=== PATIENT | female | born 2000 | race Caucasian/White ===

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

== ENCOUNTER 2021-02-03 08:17 | Outpatient (CLI) | payer BC, SELFPAY ==
--- NOTE | ~2021-02-03 | XR_ITS ---
EXAMINATION: XR UGIAC w barium swallow DATE: 02/03/2021 08:53 INDICATION: Gastroesophageal reflux disease with esophagitis. TECHNIQUE: The patient drank thick barium, gas-producing crystals, and thin barium. Fluoroscopy of th e esophagus, stomach, and proximal small bowel was performed. Fluoroscopy exposure time was 1.0 minut es. The total number of images was 267. Total dose-area product was 3.5 Gy-cm^2. COMPARISON: None. FINDINGS: There is no mass or stricture of the esophagus. Esophageal motility is normal. There is no hiatal hernia. There was no gastroesophageal reflux with provocative maneuvers. The stomach and proxi mal small bowel show normal folding patterns. IMPRESSION: 1. Normal upper gastrointestinal series. Reviewed, dictated and finalized at location A.
== END 2021-02-03 08:18 | disposition home or self-care (01) ==
PROVIDERS: PCP Family Medicine; Visit Provider Surgery
DX: K21.00 Gastro-esophageal reflux disease with esophagitis, without bleeding (principal)
CPT/HCPCS: 74246

== ENCOUNTER 2021-03-22 09:15 | Outpatient (CLI) | payer BC, SELFPAY ==
--- NOTE | ~2021-03-22 | NM_ITS ---
EXAMINATION: NM hepatobiliary w pharm DATE: 03/22/2021 12:04 INDICATION: Epigastric abdominal pain. COMPARISON: None. TECHNIQUE: 4.9 mCi Tc-99m mebrofenin (Choletec) was administered intravenously. Scintigraphic images of the abdomen were obtained for one hour. Then, 2.2 mcg sincalide (Kinevac) IV was administered, an d imaging was continued for 30 minutes. FINDINGS: There is normal clearance of radiotracer from the blood pool. There is homogeneous tracer u ptake by the liver. Activity progresses to the bowel and gallbladder. Gallbladder ejection fraction (GBEF) was 48%. Note that most patients with gallbladder dysfunction have GBEF < 35%, which overlaps with the broad normal range of 10-90%. IMPRESSION: 1. Normal hepatobiliary scintigraphy. Reviewed, dictated and finalized at location A.
== END 2021-03-22 09:16 | disposition home or self-care (01) ==
PROVIDERS: PCP Family Medicine; Visit Provider Surgery
DX: R10.13 Epigastric pain (principal); R11.0 Nausea; R11.10 Vomiting, unspecified
CPT/HCPCS: 78227; A9537; J2805

== ENCOUNTER 2021-03-22 16:38 | Emergency (ER) | payer BC, SELFPAY ==
[2021-03-22] VITALS (7 sets, daily range): BP systolic 112–137; BP diastolic 67–81; PULSE 87–92; RESP 14–20; TEMP 36.7–37.7; O2SAT 99–100
[2021-03-22 17:31] LABS: Basophils Percent Auto 0.3 % (0.2-1.2); Eosinophils Absolute Auto 0.1 K/mm3 (0-0.3); Eosinophils Percent Auto 0.9 % (0-4.4); Hematocrit 41.8 % (37.0-47.0); Hemoglobin 13.6 g/dL (12.0-15.0); Immature Granulocyte Absolute 0.03 K/mm3 (0.00-0.031); Immature Granulocyte Percent A 0.3 % (0-0.5); Lymphocytes Absolute Auto 2.48 K/mm3 (0.9-3.2); Lymphocytes Percent Auto 25.8 % (18.3-44.2); Mean Corpuscular HGB Conc 32.5 g/dl (32-36); Mean Corpuscular Hemoglobin 27.1 pg (26-34); Mean Corpuscular Volume 83.4 fl (80-100); Mean Platelet Volume 9.9 fl (7.4-10.4); Monocytes Absolute Auto 1.1 K/mm3 (0.1-0.6); Monocytes Percent Auto 11.3 % (2.6-8.5); Neutrophils Absolute Auto 5.9 K/mm3 (1.3-6.7); Neutrophils Percent Auto 61.4 % (45.5-73.1); Platelet Count Result 377 k/mm3 (150-375); Red Blood Count 5.01 M/mm3 (4.2-5.4); White Blood Count 9.6 K/mm3 (4.5-10.0)
[2021-03-22 17:44] LABS: Alanine Aminotransferase 27 U/L (4-35); Albumin Level 4.5 g/dL (3.7-5.6); Alkaline Phosphatase 92 U/L (45-116); Anion Gap 9 mmol/L (8-16); Aspartate Amino Transferase 32 U/L (14-36); Bilirubin,Total 0.4 mg/dL (0.2-1.3); Blood Urea Nitrogen 9 mg/dL (8-21); Calcium 9.5 mg/dL (8.9-10.7); Carbon Dioxide 26 mmol/L (22-30); Chloride 104 mmol/L (98-107); Estimated CRCL calculation 139 ml/min; Estimated Glomerular Filt Rate > 60; Glucose 93 mg/dL (65-105); Lipase 84 U/L (23-300); Potassium 3.8 mmol/L (3.4-5.0); Sodium 139 mmol/L (134-143)
--- NOTE | 2021-03-22 22:29 | ED.ABDPAIN ---
HPI - Abdominal Pain General Chief Complaint: Abdominal Pain Stated Complaint: ABD PAIN, N/V/D Time Seen by Provider: 03/22/21 22:29 Related Data Home Medications Medication Instructions Recorded Confirmed aripiprazole 5 mg tablet 5 mg PO HS 05/09/20 03/20/21 escitalopram oxalate 10 mg tablet 10 mg PO HS 05/09/20 03/20/21 norgestimate-ethinyl estradiol 1 tablet PO DAILY 05/09/20 03/20/21 0.18 mg/0.215mg/0.25mg-35 mcg(28)tablet cholecalciferol (vitamin D3) 25 25 mcg PO DAILY 07/18/20 03/20/21 mcg (1,000 unit) capsule Allergies Allergy/AdvReac Type Severity Reaction Status Date / Time No Known Allergies Allergy Verified 03/20/21 08:21 [facility] Past Medical History Medical History Anxiety BMI 37.0-37.9, adult Depression Headache Hiatal hernia Migraine Nausea Reflux esophagitis Surgical History Surgical History [place] teeth extracted Family History Family History Grandparent Hypertension Depression Grandparent Hypertension Hyperlipidemia Carcinoma of colon Social History Social History Alcohol intake: never Substance use: never Substance use type: does not use Additional occupation/education comments: [employer] Gender identity (if verbalized by the patient): Female Spiritual care concerns: No Course Vital Signs Vital signs: Vital Signs Temperature 37.4 C 03/22/21 17:07 Pulse Rate 88 03/22/21 17:07 Respiratory Rate 14 03/22/21 17:07 Blood Pressure 132/77 03/22/21 17:07 Pulse Oximetry 99 03/22/21 17:07 Temperature 37.7 C H 03/22/21 21:06 Pulse Rate 87 03/22/21 21:06 Respiratory Rate 18 03/22/21 21:06 Blood Pressure 112/67 03/22/21 21:06 Pulse Oximetry 100 03/22/21 21:06 MDM - Abdominal Pain Lab Data Result diagrams: 03/22/21 17:22 03/22/21 17:22 Labs: Lab Results 03/22/21 03/22/21 Range/Units 17:22 17:22 WBC 9.6 (4.5-10.0) K/mm3 RBC 5.01 (4.2-5.4) M/mm3 Hgb 13.6 (12.0-15.0) g/dL Hct 41.8 (37.0-47.0) % MCV 83.4 (80-100) fl MCH 27.1 (26-34) pg MCHC 32.5 (32-36) g/dl RDW 14.0 (11.5-14.5) % Plt Count 377 H (150-375) k/mm3 MPV 9.9 (7.4-10.4) fl Immature Gran % (Auto) 0.3 (0-0.5) % Neut % (Auto) 61.4 (45.5-73.1) % Lymph % (Auto) 25.8 (18.3-44.2) % [place]cl[place] % (Auto) 11.3 H (2.6-8.5) % Eos % (Auto) 0.9 (0-4.4) % Baso % (Auto) 0.3 (0.2-1.2) % Lymph # (Auto) 2.48 (0.9-3.2) K/mm3 [place] # (Auto) 1.1 H (0.1-0.6) K/mm3 Eos # (Auto) 0.1 (0-0.3) K/mm3 Baso # (Auto) 0.0 (0.0-0.1) K/mm3 Abs Immat Gran (auto) 0.03 (0.00-0.031) K/mm3 Absolute Neuts (auto) 5.9 (1.3-6.7) K/mm3 Absolute Nucleated RBC 0.0 (0.0-0.012) K/mm3 Nucleated RBC % 0.0 (0.0-0.2) % Sodium 139 (134-143) mmol/L Potassium 3.8 (3.4-5.0) mmol/L Chloride 104 (98-107) mmol/L Carbon Dioxide 26 (22-30) mmol/L Anion Gap 9 (8-16) mmol/L BUN 9 (8-21) mg/dL Creatinine 0.70 (0.7-1.0) mg/dL Estim Creat Clear Calc 139 ml/min Estimated GFR > 60 (59 - ) Glucose 93 (65-105) mg/dL Calcium 9.5 (8.9-10.7) mg/dL Total Bilirubin 0.4 (0.2-1.3) mg/dL AST 32 (14-36) U/L ALT 27 (4-35) U/L Alkaline Phosphatase 92 (45-116) U/L Total Protein 8.0 (6.3-8.6) g/dL Albumin 4.5 (3.7-5.6) g/dL Lipase 84 (23-300) U/L Discharge Plan Discharge Prescriptions: No Action escitalopram oxalate [Lexapro] 10 mg tablet 10 mg PO HS RF: 0 aripiprazole [Abilify] 5 mg tablet 5 mg PO HS RF: 0 norgestimate-ethinyl estradiol [Ortho Tri-Cyclen (28)] 0.18/0.215/0.25 mg-35 mcg (28) tablet 1 tablet PO DAILY RF: 0 cholecalciferol (vitamin D3) 25 mcg (1,000 unit) capsule
--- NOTE | 2021-03-22 23:15 | ED.ABDPAIN ---
HPI - Abdominal Pain General Chief Complaint: Abdominal Pain Stated Complaint: ABD PAIN, N/V/D Time Seen by Provider: 03/22/21 22:29 Source: patient and family Mode of arrival: ambulatory Limitations: no limitations History of Present Illness HPI narrative: 20-year-old with a history of anxiety depression, recurrent upper abdominal pain which is been ongoing for last few months. Mom states that she had been seen by GI had a upper GI which showed esophagitis and a small hiatal hernia for which she was on medication and a repeat EGD which showed no esophageal ulceration, she also states that she had seen Dr. Pack who did a barium studies which showed no evidence of hiatal hernia had a HIDA scan this morning. Patient states that she has been having nausea constantly. She denies any fever or chills. MD elicited complaint: abdominal pain Pertinent past history: none Pain Consistency: constant Location: epigastric Severity: mild Quality: aching Radiation: epigastric Migration to: no migration Exacerbating factors: nothing Relieving factors: nothing Related Data Patient : No Home Medications Medication Instructions Recorded Confirmed aripiprazole 5 mg tablet 5 mg PO HS 05/09/20 03/20/21 escitalopram oxalate 10 mg tablet 10 mg PO HS 05/09/20 03/20/21 norgestimate-ethinyl estradiol 1 tablet PO DAILY 05/09/20 03/20/21 0.18 mg/0.215mg/0.25mg-35 mcg(28)tablet cholecalciferol (vitamin D3) 25 25 mcg PO DAILY 07/18/20 03/20/21 mcg (1,000 unit) capsule Allergies Allergy/AdvReac Type Severity Reaction Status Date / Time No Known Allergies Allergy Verified 03/22/21 22:35 Review of Systems Review of Systems: All systems reviewed & are unremarkable except as noted in HPI and below Constitutional: Constitutional: Reports no additional constitutional complaints Eyes: Eyes: Reports no additional eye complaints ENT: Reports system reviewed and no additional complaints, except as documented Cardiovascular: Cardiovascular: Reports no additional cardiovascular complaints Respiratory: Respiratory: Reports no additional respiratory complaints Gastrointestinal: Gastrointestinal: Reports as per HPI Musculoskeletal: Musculoskeletal: Reports no additional musculoskeletal complaints PMFSH Past Medical History Medical History Anxiety BMI 37.0-37.9, adult Depression Headache Hiatal hernia Migraine Nausea Reflux esophagitis Surgical History Surgical History [place] teeth extracted Family History Family History Grandparent Hypertension Depression Grandparent Hypertension Hyperlipidemia Carcinoma of colon Social History Social History Alcohol intake: never Substance use: never Substance use type: does not use Additional occupation/education comments: [employer] Gender identity (if verbalized by the patient): Female Spiritual care concerns: No Exam Narrative: Exam Narrative: GENERAL: Well-appearing, well-nourished, and in no acute distress. HEAD: Normocephalic, atraumatic. EYES: PERRLA and EOMI. NECK: Supple. CHEST: Clear to auscultation. No respiratory distress. HEART: Regular rate and rhythm. No murmur heard. Normal peripheral pulses. ABDOMEN: Soft, mild epigastric tenderness, nondistended, normal active bowel sounds. EXTREMITIES: Normal range of motion. No edema. SKIN: Warm, dry, no rash. NEURO: No focal deficits. Alert and oriented x3. PSYCH: Normal mood and affect. Course Course Emergency Course: I discussed lab and HIDA scan report with the mother and the patient. Do not see any obvious electrolyte imbalance at this point I advised her to continue Zofran and omeprazole and follow-up with Dr. Pack. Vital Signs Vital signs: Vital Signs Temperature 37.4 C
[2021-03-22 23:41] LABS: Add Urine Microscopic? YES; Appearance Urine Clear (Clear); Bacteria Urine Trace /hpf; Bilirubin Urine Negative (Negative); Blood Urine Negative (Negative); Color Urine Yellow (Yellow); Glucose Urine UA Negative (Negative); Ketones Urine Trace mg/dL (Negative); Leukocyte Esterase Ur Negative LEU/UL (Negative); Mucus Urine Moderate /lpf; Nitrate Urine Negative (Negative); Protein Urine 1+ mg/dL (Negative); RBC Urine 0-2 /hpf (0-2); Squamous Epithelial Cell Urine Moderate /hpf (Few); Urobilinogen Urine Negative mg/dL (<2.0); WBC Urine 0-3 /hpf
[2021-03-22 23:51] LABS: Specific Grav Ur 1.032 (1.001-1.035)
== END 2021-03-22 23:39 | disposition home or self-care (01) ==
PROVIDERS: Emergency Medicine; Emergency Provider Family Medicine; PCP Family Medicine
DX: R10.13 Epigastric pain (principal); K21.00 Gastro-esophageal reflux disease with esophagitis, without bleeding; F41.9 Anxiety disorder, unspecified; F32.9 Major depressive disorder, single episode, unspecified
CPT/HCPCS: 36415; 80053; 81001; 81025; 83690; 85025; 99283

== ENCOUNTER 2021-03-23 10:38 | Outpatient (CLI) | payer BC, SELFPAY ==
--- NOTE | ~2021-03-23 | US_ITS ---
EXAMINATION: US right upper quadrant DATE: 03/23/2021 11:21 INDICATION: Epigastric abdominal pain. Diaphragmatic hernia without obstruction. TECHNIQUE: Multiple grayscale and Doppler ultrasound images of the abdomen were obtained. COMPARISON: None FINDINGS: The visualized portions of the head, body, and tail of the pancreas are normal. The liver i s normal without focal lesion. No liver surface nodularity. There is normal flow in main portal vein. The gallbladder is normal in size. No gallstones or gallbladder wall thickening. There was no sonogr aphic Mendez sign. The common duct is normal and measures 4 mm. IMPRESSION: 1. Normal right upper quadrant ultrasound. Reviewed, dictated and finalized at location A.
== END 2021-03-23 10:39 | disposition home or self-care (01) ==
LOC: ANHIMG 10:42
PROVIDERS: PCP Family Medicine; Visit Provider Surgery
DX: K44.9 Diaphragmatic hernia without obstruction or gangrene (principal)
CPT/HCPCS: 76705

== ENCOUNTER 2022-03-19 11:27 | Outpatient (CLI) | payer BC, SELFPAY ==
--- NOTE | ~2022-03-19 | US_ITS ---
EXAMINATION: US breast LT limited HISTORY: Palpable lump in the upper outer quadrant of the left breast TECHNIQUE: Limited ultrasound is performed in the upper outer quadrant of the left breast. FINDINGS: There is no evidence of focal abnormal cystic or solid mass in the vicinity of the reported palpable abnormality of concern. IMPRESSION: No specific sonographic correlate is identified for the reported palpable abnormality of concern. Fur ther evaluation at this time should be based on clinical assessment. Continued follow-up physical exa mination is recommended. BI-RADS Category 1: Negative Reviewed, dictated and finalized at location A. IMPRESSION: No specific sonographic correlate is identified for the reported palpable abnor mality of concern. Further evaluation at this time should be based on clinical assessment. Continued follow-up physical examination is recommended. BI-RADS Category 1: Negative
== END 2022-03-19 11:28 | disposition home or self-care (01) ==
PROVIDERS: PCP Family Medicine; Visit Provider Physician Assistant Medical
DX: N63.0 Unspecified lump in unspecified breast (principal)
CPT/HCPCS: 76642

== ENCOUNTER 2022-10-15 12:27 | Outpatient (CLI) | payer BC, SELFPAY ==
--- NOTE | ~2022-10-15 | US_ITS ---
EXAMINATION: US thyroid DATE: 10/15/2022 13:32 INDICATION: Disorder of thyroid, unspecified. TECHNIQUE: Multiple ultrasound images of the thyroid were obtained. COMPARISON: Ultrasound 05/11/2020 FINDINGS: The right thyroid lobe measures 5.1 x 1.0 x 1.5 cm. The left thyroid lobe measures 4.7 x 1.3 x 2.0 c m. In the right thyroid lobe, there is a 6 mm cystic nodule (TI-RADS TR1). In the right thyroid node lobe, there is a 7 mm cystic nodule (TR1). In the right thyroid lobe, there is a 12 mm cystic nodule (TR1). In the right thyroid lobe, there is an 8 mm solid, hypoechoic, wider than tall nodule with sm ooth margin without echogenic foci (TR4). In the left thyroid lobe, there is a 13 mm cystic nodule (T R1). In the left thyroid lobe, there is an 11 mm cystic nodule (TR1). IMPRESSION: 1. Multinodular goiter, likely not clinically significant. No follow-up is needed. Reviewed, dictated and finalized at location A. ST IMPRESSION: 1. Multinodular goiter, likely not clinically significant. No follow-up is need ed.
--- NOTE | ~2022-10-15 | CT_ITS ---
EXAMINATION: CT abdomen pelvis w con DATE: 10/15/2022 13:03 INDICATION: Abdominal pain. TECHNIQUE: Computed tomography (CT) of the abdomen and pelvis was performed with 100 mL Omnipaque 350 intravenous contrast. Automated exposure control and iterative reconstruction technique were employe d. The dose-length product was 1005.48 mGy-cm. COMPARISON: None. FINDINGS: The visualized portions of the lung bases are clear without pneumonia or pleural effusion. The heart size is normal. No pericardial effusion. There is focal steatosis in the liver adjacent to the falciform ligament. The gallbladder, spleen, pancreas, adrenal glands, and kidneys are normal. Th ere are no dilated loops of bowel. The appendix is normal. There are no pathologically enlarged lymph nodes. There is no free intraperitoneal fluid. There is mild lumbar spondylosis. IMPRESSION: 1. No etiology for the patient's symptoms. Reviewed, dictated and finalized at location A. ESS SPECIALIST
--- NOTE | 2022-10-18 11:33 | WPDHOLTEREM ---
Holter/Event Monitor Holter/Event Monitor Date of procedure: 10/15/22 Holter/Event Procedure: 48 Hr Holter Monitor Indications: Tachycardia Conclusion: 1. 48 hour holter monitor on 10/15/22. 2. Underlying rhythm is sinus rhythm. HR range 55-162 bpm; average HR 92 bpm. HR at 162 bpm was at 12:33. 3. There are 2 premature supraventricular complexes and 2 supraventricular couplet. No supraventricular tachycardia. 4. There are 4 premature ventricular complexes. No ventricular tachycardia. 5. No sinoatrial or atrioventricular blocks. No significant pauses greater than 2 seconds. 6. Patient reports symptoms of shortness of breath which demonstrate sinus rhythm, HR range 84-140 bpm.
== END 2022-10-15 12:28 | disposition home or self-care (01) ==
PROVIDERS: PCP Family Medicine; Visit Provider Physician Assistant Medical
DX: R10.9 Unspecified abdominal pain (principal); E07.9 Disorder of thyroid, unspecified; R06.02 Shortness of breath; E04.2 Nontoxic multinodular goiter
CPT/HCPCS: 74177; 76536; 93225; 93226; Q9967

== ENCOUNTER 2024-07-25 12:54 | Emergency (ER) | payer OTHER, BC, SELFPAY ==
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
[2024-07-25 13:04] VITALS: BP 143/89; PULSE 69; RESP 14; TEMP 36.7; O2SAT 100
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
[2024-07-25 17:04] VITALS: BP 117/56; PULSE 95; RESP 16; TEMP 36.1; O2SAT 95
== END 2024-07-25 17:07 | disposition home or self-care (01) ==
PROVIDERS: Emergency Provider Physician Assistant
DX: S06.0X0A Concussion without loss of consciousness, initial encounter (principal); W51.XXXA Accidental striking against or bumped into by another person, initial encounter
CPT/HCPCS: 70450; 99284